=== PATIENT | male | born 1990 | race Caucasian/White ===

== ENCOUNTER 2020-05-27 10:25 | Emergency (ER) | payer MEDICAID ==
[~2020-05-27 10:25] MED LIST: BACTRIM DS 8001 TA1 PO
[2020-05-27] MEDS ORDERED: SEPTDS PO (12:28)
[2020-05-27] MEDS ORDERED: NAPROXEN250 MG PO (12:28)
[2020-05-27] MEDS ORDERED: TYLENOL325 M1 PO (12:28)
== END 2020-05-27 12:58 | disposition home or self-care (01) ==
LOC: ED 10:25
DX: L05.01 Pilonidal cyst with abscess (principal); Z79.899 Other long term (current) drug therapy

== ENCOUNTER 2020-06-25 11:43 | Emergency (ER) | payer OTHER ==
[~2020-06-25 11:43] MED LIST changes: +NAPROXEN250 MG PO; +SEPTDS PO; +TYLENOL325 M1 PO
[2020-06-25 12:20] LABS: BASO # 0.1 10*3/uL (0.0-0.1); BASO % 0.6 % (0.0-1.0); EOS # 0.1 10*3/uL (0.0-0.4); EOS % 1.3 % (1.0-4.0); HEMATOCRIT 46.1 % (42.0-52.0); LYMPH # 2.6 10*3/uL (1.3-4.4); LYMPH % 32.2 % (27.0-41.0); MEAN CELL VOLUME 92.9 fl (80.0-94.0); MEAN CORPUSCULAR HGB 29.8 pg (27.0-31.0); MEAN CORPUSCULAR HGB CONC 32.1 g/dl (33.0-37.0); MEAN PLATELET VOLUME 10.1 fl (9.6-12.3); MONO # 0.4 10*3/uL (0.1-1.0); MONO % 4.6 % (3.0-9.0); NEUT % 60.9 % (47.0-73.0); PLATELET COUNT AUTOMATED 259 10*3/uL (130-400); RED BLOOD COUNT 4.96 10*6/uL (4.50-5.90); RED CELL DISTRI WIDTH 13.5 % (0-14.5); WHITE BLOOD COUNT 8.2 10*3/uL (4.8-10.8)
[2020-06-25 12:32] LABS: ACT PARTIAL THROMBO TIME 29.1 SECONDS (20.0-32.1)
[2020-06-25 12:36] LABS: ALBUMIN 4.2 gm/dl (3.1-4.5); ALKALINE PHOSPHATASE 50 U/L (45-117); BUN 20 mg/dl (7-24); CHLORIDE 112 mmol/L (98-107); CREATININE 1.21 mg/dL (0.70-1.30); POTASSIUM 4.6 mmol/L (3.5-5.1); SGOT/AST 53 IU/L (3-35); SGPT/ALT 103 U/L (12-78); SODIUM 141 mmol/L (136-145)
[2020-06-25 12:51] LABS: TROPONIN I < 0.015 ng/ml (<0.045)
[2020-06-25] MEDS ORDERED: NAPROSYN500 MG PO (13:58)
== END 2020-06-25 14:05 | disposition home or self-care (01) ==
LOC: ED 11:43
PROVIDERS: Emergency Medicine
DX: R07.89 Other chest pain (principal)

== ENCOUNTER 2022-05-16 13:14 | Emergency (ER) | payer OTHER ==
[~2022-05-16] VITALS: Ht 187.9 cm; Wt 113.4 kg
[~2022-05-16 13:14] MED LIST changes: +NAPROSYN500 MG PO
[2022-05-16] MEDS ORDERED: AMOXICILLIN875 MG PO ×2 (17:51→18:51)
== END 2022-05-16 19:00 | disposition home or self-care (01) ==
LOC: ED 13:14
DX: J02.0 Streptococcal pharyngitis (principal); J45.909 Unspecified asthma, uncomplicated; Z87.891 Personal history of nicotine dependence; Z20.822 Contact with and (suspected) exposure to COVID-19

== ENCOUNTER 2023-03-15 16:40 | Emergency (ER) | payer OTHER ==
[~2023-03-15] VITALS: Wt 113.4 kg
[~2023-03-15 16:40] MED LIST changes: +AMOXICILLIN875 MG PO
[2023-03-15] MEDS ORDERED: AMOX-CLAV 875-1 EACH PO (20:42)
[2023-03-15] MEDS ORDERED: BROMFED DM COU118 M2 PO (20:42)
== END 2023-03-15 20:54 | disposition home or self-care (01) ==
LOC: ED 16:40
DX: J18.9 Pneumonia, unspecified organism (principal); J45.909 Unspecified asthma, uncomplicated; Z20.822 Contact with and (suspected) exposure to COVID-19

== ENCOUNTER 2024-10-31 10:34 | Emergency (ER) | payer OTHER ==
[~2024-10-31] VITALS: Ht 185.4 cm; Wt 108.9 kg
[~2024-10-31 10:34] MED LIST changes: +AMOX-CLAV 875-1 EACH PO; +BROMFED DM COU118 M2 PO
[2024-10-31] MEDS ORDERED: Acetaminophen/Oxycodone 5 MG/325 MG TABLET PO ONE (11:00)
[2024-10-31] MEDS ORDERED: Sulfamethoxazole/Trimethopri 1 TAB TAB PO ONE (11:00)
[2024-10-31] MEDS ORDERED: SEPTDS PO (11:22)
[2024-10-31] MEDS ORDERED: MELOXICAM15 MG PO (11:22)
== END 2024-10-31 11:34 | disposition home or self-care (01) ==
LOC: ED 10:34
DX: L05.01 Pilonidal cyst with abscess (principal); Z79.2 Long term (current) use of antibiotics; Z79.899 Other long term (current) drug therapy

== ENCOUNTER 2024-11-11 23:52 | Emergency (ER) | payer OTHER ==
[~2024-11-11] VITALS: Wt 111.1 kg
[~2024-11-11 23:52] MED LIST changes: +MELOXICAM15 MG PO
[2024-11-12] MEDS ORDERED: SODIUM CHLORIDE 0.9% 1,000 ML IV SCH (00:15)
[2024-11-12] MEDS ORDERED: ACETAMINOPHEN 325 MG TAB PO ONE (00:20)
[2024-11-12 00:28] LABS: BASO # 0.0 10*3/uL (0.0-0.1); BASO % 0.3 % (0.0-1.0); EOS # 0.1 10*3/uL (0.0-0.4); EOS % 1.5 % (1.0-4.0); MEAN CELL VOLUME 89.6 fl (80.0-94.0); MEAN CORPUSCULAR HGB 29.6 pg (27.0-31.0); MEAN PLATELET VOLUME 9.2 fl (9.6-12.3); MONO # 0.5 10*3/uL (0.1-1.0); MONO % 6.8 % (3.0-9.0); NEUT # 5.9 10*3/uL (2.3-7.9); NEUT % 76.0 % (47.0-73.0); NUCLEATED RED BLOOD CELL 0.0 % (0.0-0.0); NUCLEATED RED BLOOD CELL 0.0 10*3/uL (0.0-0.0); PLATELET COUNT AUTOMATED 240 10*3/uL (130-400); RED CELL DISTRI WIDTH 12.5 % (0-14.5)
[2024-11-12 00:51] LABS: BUN 10 mg/dl (9-23); SGPT/ALT 56 U/L (5-49)
== END 2024-11-12 02:00 | disposition short-term general hospital (02) ==
LOC: ED 23:52
PROVIDERS: Nurse Practitioner Family
DX: L51.1 Stevens-Johnson syndrome (principal); J45.909 Unspecified asthma, uncomplicated